=== PATIENT | female | born 1985 ===

== ENCOUNTER 2018-07-01 14:34 | Observation (INO) | payer SELFPAY ==
[~2018-07-01 14:34] MED LIST: Iohexol 300 100 ML IJ ONE; Sodium Chloride 0.9% 50 ML IV ONE
[2018-07-01] MEDS ORDERED: cefTRIAXone (Rocephin) 1 gm Inj ONE (15:21)
[2018-07-01 15:38] LABS: BASO # 0.1 K/uL (0.0-0.2); BASO % 0.5 % (0.0-2.0); EOS # 1.8 K/uL (0.0-0.7); HEMOGLOBIN 12.3 g/dL (12.0-16.0); LYMPH % 11.9 % (20.0-40.0); MEAN CELL VOLUME 91.6 fl (81.0-99.0); MEAN CORPUSCULAR HGB CONC 33.8 g/dL (33.0-37.0); MEAN PLATELET VOLUME 8.4 fl (7.2-11.7); MONO # 1.2 K/uL (0.0-0.8); MONO % 7.2 % (0.0-10.0); NEUT # 11.5 K/uL (1.8-7.0); NEUT % 69.4 % (50.0-75.0); RBC 3.96 Mil/uL (3.80-5.20); RED CELL DISTRIBUTION WIDTH 12.9 % (11.5-14.5); WHITE BLOOD COUNT 16.5 K/uL (4.8-10.8)
[2018-07-01 15:54] LABS: ALB/GLOB RATIO 1.3 (1.0-2.1); ALBUMIN 3.9 g/dL (3.5-5.0); ALT/SGPT 28 U/L (9-52); AST/SGOT 25 U/L (14-36); BLOOD UREA NITROGEN 13 mg/dl (7-17); CALCIUM 8.9 mg/dL (8.4-10.2); GFR NON-AFRICAN AMERICAN > 60
[2018-07-01 16:00] LABS: SQUAMOUS EPITHIAL 3 /hpf (0-5); URINE BILIRUBIN NEGATIVE (NEGATIVE); URINE BLOOD NEGATIVE (NEGATIVE); URINE CLARITY SLIGHTY-CLOUDY (Clear); URINE COLOR YELLOW (YELLOW); URINE GLUCOSE (UA) NEG (Normal); URINE LEUKOCYTE ESTERASE MOD Leu/uL (Negative); URINE PROTEIN NEGATIVE (NEGATIVE); URINE UROBILINOGEN 0.2-1.0 mg/dL (0.2-1.0)
--- NOTE | 2018-07-01 16:44 | CP.PCM.HP ---
History of Present Illness - History of Present Illness History of Present Illness: 33 yo female with no significant PMH came in because of low abdominal pain radiating to the back and right leg since 3 days ago. Denied dysuria, fever or chills. Had one episode of vomiting today but denied nausea. Present on Admission - Present on Admission Any Indicators Present on Admission: No History of DVT/PE: No History of Uncontrolled Diabetes: No Urinary Catheter: No Decubitus Ulcer Present: No Review of Systems - Review of Systems All systems: reviewed and no additional remarkable complaints except (aside from those mentioned above, 12 point system review were negative by me) Past Patient History - Tetanus Immunizations Tetanus Immunization: Unknown - Past Medical History & Family History Past Medical History?: No Past Family History: Reviewed and not pertinent - Past Social History Smoking Status: Never Smoked Chewing Tobacco Use: No Cigar Use: No Alcohol: None Drugs: Denies - CARDIAC Hx Cardiac Disorders: No - PULMONARY Hx Respiratory Disorders: No - NEUROLOGICAL Hx Neurological Disorder: No - HEENT Hx HEENT Problems: No - RENAL Hx Chronic Kidney Disease: No - ENDOCRINE/METABOLIC Hx Endocrine Disorders: No - HEMATOLOGICAL/ONCOLOGICAL Hx Blood Disorders: No - INTEGUMENTARY Hx Dermatological Problems: No - MUSCULOSKELETAL/RHEUMATOLOGICAL Hx Musculoskeletal Disorders: No - GASTROINTESTINAL Hx Gastrointestinal Disorders: No - GENITOURINARY/GYNECOLOGICAL Hx Genitourinary Disorders: No - PSYCHIATRIC Hx Psychophysiologic Disorder: No - SURGICAL HISTORY Hx Surgeries: No - ANESTHESIA Hx Anesthesia: No Physical Exam - Constitutional Appears: No Acute Distress - Head Exam Head Exam: ATRAUMATIC - Eye Exam Eye Exam: absent: Nystagmus - ENT Exam ENT Exam: Mucous Membranes Moist - Neck Exam Neck exam: Negative for: Meningismus - Respiratory Exam Respiratory Exam: absent: Rales, Rhonchi, Wheezes, Respiratory Distress - Cardiovascular Exam Cardiovascular Exam: REGULAR RHYTHM, +S1, +S2 - GI/Abdominal Exam GI & Abdominal Exam: Soft, Tenderness (tenderness over suprapubic area) - Rectal Exam Rectal Exam: Deferred - Extremities Exam Extremities exam: Negative for: calf tenderness, pedal edema - Back Exam Back exam: NORMAL INSPECTION - Neurological Exam Neurological exam: Alert, Oriented x3 - Psychiatric Exam Psychiatric exam: Normal Affect - Skin Skin Exam: Dry, Intact Results - Labs Result Diagrams: 07/01/18 12:40 07/01/18 12:40 Labs: Laboratory Results - last 24 hr 07/01/18 07/01/18 07/01/18 12:40 12:40 12:40 WBC 16.5 H RBC 3.96 Hgb 12.3 Hct 36.2 MCV 91.6 MCH 31.0 MCHC 33.8 RDW 12.9 Plt Count 320 MPV 8.4 Neut % (Auto) 69.4 Lymph % (Auto) 11.9 L [place] % (Auto) 7.2 Eos % (Auto) 11.0 H Baso % (Auto) 0.5 Neut # (Auto) 11.5 H Lymph # (Auto) 2.0 [place] # (Auto) 1.2 H Eos # (Auto) 1.8 H Baso # (Auto) 0.1 Sodium 136 Potassium 3.5 L Chloride 104 Carbon Dioxide 27 Anion Gap 9 L BUN 13 Creatinine 0.4 L Est GFR ( Amer) > 60 Est GFR (Non-Af Amer) > 60 Random Glucose 94 Calcium 8.9 Total Bilirubin 0.1 L AST 25 ALT 28 Alkaline Phosphatase 55 Total Protein 7.0 Albumin 3.9 Globulin 3.1 Albumin/Globulin Ratio 1.3 Urine Color Yellow Urine Clarity Slighty-cloudy Urine pH 5.0 Ur Specific [place] 1.024 Urine Protein Negative Urine Glucose (UA) Neg Urine Ketones Negative Urine Blood Negative Urine Nitrate Negative Urine Bilirubin Negative Urine Urobilinogen 0.2-1.0 Ur Leukocyte Esterase Mod Urine RBC (Auto) 3 Urine Microscopic WBC 10 H Ur Squamous Epith Cells 3 Assessment & Plan (1) Pyelonephritis Status: Acute Comment: urine and blood culture. IV hydration with NSS 125cc/hr. Rocephine 1mg IV daily. Morphine 2mg IV q 4hrs prn for pain (2) Hydronephrosis Status: Acute Comment: urology consult. review CT scan of abdomen and pelvis
[2018-07-01 16:45] VITALS: BMI 22.1
[2018-07-01] MEDS: Sodium Chloride 0.9% 1,000 ML IV SCH (17:06)
[2018-07-01] MEDS ORDERED: Pneumococcal 23-Valent Vaccine IM ONE (19:42)
[2018-07-01] MEDS ORDERED: Influenza Vaccine (5 YR UP)/PF 60 MCG/0.5 ML SYR IM ONE (19:43)
[2018-07-02] MEDS: Sodium Chloride 0.9% 1,000 ML IV SCH (06:20)
[2018-07-02 06:31] LABS: BASO # 0.1 K/uL (0.0-0.2); BASO % 0.7 % (0.0-2.0); EOS # 2.3 K/uL (0.0-0.7); EOS % 21.5 % (0.0-4.0); HEMOGLOBIN 11.9 g/dL (12.0-16.0); LYMPH # 2.6 K/uL (1.0-4.3); LYMPH % 24.4 % (20.0-40.0); MEAN CELL VOLUME 92.1 fl (81.0-99.0); MEAN CORPUSCULAR HEMOGLOBIN 31.4 pg (27.0-31.0); MEAN CORPUSCULAR HGB CONC 34.1 g/dL (33.0-37.0); MEAN PLATELET VOLUME 8.3 fl (7.2-11.7); MONO # 0.7 K/uL (0.0-0.8); MONO % 6.9 % (0.0-10.0); NEUT % 46.5 % (50.0-75.0); PLATELET COUNT 305 K/uL (130-400); RBC 3.79 Mil/uL (3.80-5.20); RED CELL DISTRIBUTION WIDTH 12.9 % (11.5-14.5); WHITE BLOOD COUNT 10.7 K/uL (4.8-10.8)
[2018-07-02 06:55] LABS: BLOOD UREA NITROGEN 9 mg/dl (7-17); CALCIUM 7.9 mg/dL (8.4-10.2); GFR NON-AFRICAN AMERICAN > 60
[2018-07-02 09:11] LABS: VENOUS BLOOD GAS BASE EXCESS -3.2 mmol/L (0.0-2.0); VENOUS BLOOD GAS PCO2 48 mmHg (40-60); VENOUS BLOOD GAS PO2 26 mm/Hg (30-55)
[2018-07-02] MEDS: Pantoprazole 40 mg EC Tab PO SCH (09:20)
--- NOTE | 2018-07-02 09:43 | CT ---
Date of service: 07/01/2018 PROCEDURE: CT Abdomen and Pelvis with contrast HISTORY: COMPARISON: None. TECHNIQUE: CT scan of the abdomen and pelvis was performed after administration of intravenous contrast. Oral contrast was not administered. Coronal and sagittal reformatted images were obtained. Contrast dose: 95 cc Omnipaque 300 Radiation dose: Total exam DLP = 251.70 mGy-cm. This CT exam was performed using one or more of the following dose reduction techniques: Automated exposure control, adjustment of the mA and/or kV according to patient size, and/or use of iterative reconstruction technique. FINDINGS: LOWER THORAX: There is minimal subsegmental atelectasis in the lung bases.. LIVER: Normal in size with homogeneous enhancement. No gross lesion or ductal dilatation. GALLBLADDER AND BILE DUCTS: No calcified gallstones. PANCREAS: Normal in size with homogeneous enhancement. No gross lesion or ductal dilatation. SPLEEN: Normal in size and appearance. ADRENALS: No discrete nodule. KIDNEYS AND URETERS: Normal in size with homogeneous enhancement. There is mild right hydronephrosis and mild dilatation of the proximal and mid right ureter without evidence for obstructing stone. No solid mass. VASCULATURE: No aortic aneurysm. BOWEL: The small bowel loops are normal in caliber. The colon is unremarkable. No bowel dilatation or obstruction. APPENDIX: Normal appendix. PERITONEUM: Unremarkable. No free fluid. No free air. LYMPH NODES: Unremarkable. No enlarged lymph nodes. BLADDER: The urinary bladder is over distended and grossly normal in appearance. REPRODUCTIVE: The uterus is normal in size and deviated to the right. BONES: No acute fracture. Within normal limits for the patient's age. OTHER FINDINGS: None. IMPRESSION: No acute abdominal or pelvic abnormality. Over distended urinary bladder, mild right hydronephrosis and mild dilatation of the proximal and mid right ureter likely related to an over distended urinary bladder. No evidence for obstructive uropathy.
--- NOTE | 2018-07-02 10:47 | CP.PCM.DIS ---
Addendum entered and electronically signed by Sandi Sinclair MD 07/03/18 12:43: Patient was seen and examined . All chart and clinical data reviewed . Case discussed with resident . Agree with assessment and discharge planning. Patient is hemodynamically stable, afebrile, pain free, voiding freely with no hematuria or dysuria will discharge patient home Continue Cipro for 5 more days Addendum entered and electronically signed by Lorenzo Phelan MD 07/03/18 12:03: Pt was discharged on 07/03/18 Original Note: Provider - Provider Date of Admission: 07/01/18 16:52 Attending physician: Myles Downs MD Time Spent in preparation of Discharge (in minutes): 20 Diagnosis - Discharge Diagnosis (1) Renal colic Status: Acute (2) Hydronephrosis Status: Acute (3) UTI (urinary tract infection) Status: Acute Hospital Course - Lab Results Lab Results: Most Recent Lab Values WBC 10.7 K/uL (4.8-10.8) 07/02/18 05:35 RBC 3.79 Mil/uL (3.80-5.20) L 07/02/18 05:35 Hgb 11.9 g/dL (12.0-16.0) L 07/02/18 05:35 Hct 34.9 % (34.0-47.0) 07/02/18 05:35 MCV 92.1 fl (81.0-99.0) 07/02/18 05:35 MCH 31.4 pg (27.0-31.0) H 07/02/18 05:35 MCHC 34.1 g/dL (33.0-37.0) 07/02/18 05:35 RDW 12.9 % (11.5-14.5) 07/02/18 05:35 Plt Count 305 K/uL (130-400) 07/02/18 05:35 MPV 8.3 fl (7.2-11.7) 07/02/18 05:35 Neut % (Auto) 46.5 % (50.0-75.0) L 07/02/18 05:35 Lymph % (Auto) 24.4 % (20.0-40.0) 07/02/18 05:35 [place] % (Auto) 6.9 % (0.0-10.0) 07/02/18 05:35 Eos % (Auto) 21.5 % (0.0-4.0) H 07/02/18 05:35 Baso % (Auto) 0.7 % (0.0-2.0) 07/02/18 05:35 Neut # (Auto) 5.0 K/uL (1.8-7.0) 07/02/18 05:35 Lymph # (Auto) 2.6 K/uL (1.0-4.3) 07/02/18 05:35 [place] # (Auto) 0.7 K/uL (0.0-0.8) 07/02/18 05:35 Eos # (Auto) 2.3 K/uL (0.0-0.7) H 07/02/18 05:35 Baso # (Auto) 0.1 K/uL (0.0-0.2) 07/02/18 05:35 ESR 12 mm/hr (0-20) 07/02/18 09:01 pO2 26 mm/Hg (30-55) L 07/01/18 14:50 ABG Carboxyhemoglobin 1.6 % (0.5-1.5) H 07/01/18 14:50 POC ABG HHb (Measured) 49.8 % (0.0-5.0) H 07/01/18 14:50 ABG Methemoglobin 3.7 % (0.0-3.0) H 07/01/18 14:50 VBG pH 7.30 (7.32-7.43) L 07/01/18 14:50 VBG pCO2 48 mmHg (40-60) 07/01/18 14:50 VBG HCO3 21.0 mmol/L 07/01/18 14:50 VBG O2 Sat (Calc) 47.4 % (40-65) 07/01/18 14:50 VBG Base Excess -3.2 mmol/L (0.0-2.0) L 07/01/18 14:50 VBG Hgb O2 Saturation 44.9 % (95.0-98.0) L 07/01/18 14:50 Hemoglobin 14.0 g/dL (11.7-17.4) 07/01/18 14:50 Sodium 138 mmol/l (132-148) 07/02/18 05:35 Potassium 3.8 MMOL/L (3.6-5.0) 07/02/18 05:35 Chloride 109 mmol/L (98-107) H 07/02/18 05:35 Carbon Dioxide 24 mmol/L (22-30) 07/02/18 05:35 Anion Gap 9 (10-20) L 07/02/18 05:35 BUN 9 mg/dl (7-17) 07/02/18 05:35 Creatinine 0.5 mg/dl (0.7-1.2) L 07/02/18 05:35 Est GFR ( Amer) > 60 07/02/18 05:35 Est GFR (Non-Af Amer) > 60 07/02/18 05:35 Random Glucose 85 mg/dL (65-105) 07/02/18 05:35 Calcium 7.9 mg/dL (8.4-10.2) L 07/02/18 05:35 Total Bilirubin 0.1 mg/dl (0.2-1.3) L 07/01/18 12:40 AST 25 U/L (14-36) 07/01/18 12:40 ALT 28 U/L (9-52) 07/01/18 12:40 Alkaline Phosphatase 55 U/L (38-126) 07/01/18 12:40 Total Protein 7.0 G/DL (6.3-8.2) 07/01/18 12:40 Albumin 3.9 g/dL (3.5-5.0) 07/01/18 12:40 Globulin 3.1 gm/dL (2.2-3.9) 07/01/18 12:40 Albumin/Globulin Ratio 1.3 (1.0-2.1) 07/01/18 12:40 Urine Color Yellow (YELLOW) 07/01/18 12:40 Urine Clarity Slighty-cloudy (Clear) 07/01/18 12:40 Urine pH 5.0 (5.0-8.0) 07/01/18 12:40 Ur Specific [place] 1.024 (1.003-1.030) 07/01/18 12:40 Urine Protein Negative mg/dL (NEGATIVE) 07/01/18 12:40 Urine Glucose (UA) Neg mg/dL (Normal) 07/01/18 12:40 Urine Ketones Negative mg/dL (NEGATIVE) 07/01/18 12:40 Urine Blood Negative (NEGATIVE) 07/01/18 12:40 Urine Nitrate Negative (NEGATIVE) 07/01/18 12:40 Urine Bilirubin Negative (NEGATIVE) 07/01/18 12:40 Urine Urobilinogen 0.2-1.0 mg/dL (0.2-1.0) 07/01/18 12:40 Ur Leukocyte Esterase Mod [place]/uL (Negative) 07/01/18 12:40 Urine RBC (Auto) 3 /hpf (0-3) 07/01/18 12:40 Urine Microscopic WBC 10 /hpf (0-5) H 07/01/18 12:40 Ur Squamous Epith Cells 3 /hpf (0-5) 07/01/18 12:40 - Hospital Course Hospital Course: 33 yo female with no PMH presented to ER due to low abd pain radiate to back and right leg since 3 days ago. PT was Admitted for evaluation Hydronephrosis. CT scan was ordered, mild hydronephrosis was noted. Pt was put on morphine for pain, hydrated, Ceftriaxone given. CBC and CMP was withdrawn, WBC was 16.4 with eosinophelia. Today pt state pain have improved, vitals are stable, WBC resolved to 10.7. U/S was ordered to r/o appendicitis which was negative. Pt able to void, eat and feel comfortable to go home. Pt will be discharged with PO with Cipro 500mg BID for 7days Pt need to follow up with PCP in 1 week. If pain rebound or exacerbate, develop fever chills, N vomiting or any symptoms of concern pt should go to the closest ER. Case discussed with Dr Sincalir. Discharge Exam - Head Exam Head Exam: ATRAUMATIC, NORMAL INSPECTION, NORMOCEPHALIC - Eye Exam Eye Exam: EOMI, Normal appearance, PERRL Pupil Exam: NORMAL ACCOMODATION, PERRL - ENT Exam ENT Exam: Normal Exam, Normal External Ear Exam. absent: Mucous Membranes Dry - Neck Exam Neck exam: Full Rom, Normal Inspection - Respiratory Exam Respiratory Exam: Clear to PA & Lateral, NORMAL BREATHING PATTERN, UNREMARKABLE. absent: Chest Wall Tenderness, Decreased Breath Sounds - Cardiovascular Exam Cardiovascular Exam: REGULAR RHYTHM, +S1, +S2 - GI/Abdominal Exam GI & Abdominal Exam: Normal Bowel Sounds, Unremarkable. absent: Distended, Firm, Guarding, Hernia, Hyperactive Bowel Sounds, Pulsatile Mass, Rigid Additional comments: Tenderness noted on mid lower pelvic area Psoas Sign Negative - Rectal Exam Rectal Exam: NORMAL INSPECTION - Extremities Exam Extremities exam: full ROM - Back Exam Back exam: NORMAL INSPECTION. absent: CVA tenderness (L), CVA tenderness (R) - Neurological Exam Neurological exam: Alert, CN II-XII Intact, Oriented x3 - Psychiatric Exam Psychiatric exam: Normal Affect, Normal Mood - Skin Skin Exam: Dry, Intact, Normal Color, Warm Additional comments: Skin hyperpigmentation noted on LMQ of abdomen, and RIGHT forearm Discharge Plan - Discharge Medications Prescriptions: Ciprofloxacin [Cipro] 500 mg PO Q12H #14 tab - Follow Up Plan Condition: STABLE Disposition: HOME/ ROUTINE Instructions: Hydronephrosis, Adult (DC) Additional Instructions: follow up with primary MD 1 week hacer bobo con [place] primario dentro de 1 semana Hacer bobo on [facility] lo mas pronto possible Referrals: [facility] [place] [Outside]
[2018-07-02 11:45] LABS: EOSINOPHIL 26 % (0-7); LYMPHOCYTE 26 % (20-50); MONOCYTE 5 % (0-10); NEUTROPHIL 43 % (42-75); TOTAL CELLS COUNTED 100
[2018-07-02 11:46] LABS: HYPOCHROMIC SLIGHT; PLATELET ESTIMATE NORMAL (NORMAL)
--- NOTE | 2018-07-02 16:09 | CP.PCM.PN ---
Addendum entered and electronically signed by Sandi Sinclair MD 07/02/18 18:40: Patient seen and examined bedside . All chart and clinical data reviewed . Case discussed with resident . Agree with assessment and plan With RLQ tenderness and rebound Hemodtynamically stable, afebrile, denies dysuria or hematuria WBC 10 K , UA showed only 10 WBC and moderate LE US abdomen showed mild right hydronephrosis and non obstructing calculi Will continue current management , IVF , pain management and IV antibiotics Possibly diagnosis is renal colic and less likely UTI Original Note: Subjective - Date & Time of Evaluation Date of Evaluation: 07/02/18 Time of Evaluation: 07:00 - Subjective Subjective: Pt is seen and examined at bed site, Pt have no acute event overnight, Pt was able to void with no difficulty. Pt is comfortable, have mild abd pain exacerbated by movement mostly on RLQ. Pt denies any fever, chills, chest pain, sob, diarrhea/constipation, dysuria or polyuria. Objective - Vital Signs/Intake and Output Vital Signs (last 24 hours): Temp Pulse Resp BP Pulse Ox 99.0 F 57 L 20 102/67 99 07/02/18 08:10 07/02/18 08:10 07/02/18 08:10 07/02/18 08:10 07/02/18 08:10 - Medications Medications: Current Medications Sodium Chloride (Sodium Chloride 0.9%) 1,000 mls @ 100 mls/hr IV .Q10H CRISTY Last Admin: 07/02/18 06:20 Dose: Not Given Ceftriaxone Sodium 1 gm/ (Sodium Chloride) 100 mls @ 100 mls/hr IVPB DAILY CRISTY; Protocol Last Admin: 07/02/18 10:45 Dose: 100 mls/hr Morphine Sulfate (Morphine) 2 mg IVP Q4 PRN PRN Reason: Pain, moderate (4-7) Last Admin: 07/02/18 06:54 Dose: 2 mg Pantoprazole Sodium (Protonix Ec Tab) 40 mg PO DAILY CRISTY Last Admin: 07/02/18 09:20 Dose: 40 mg - Labs Labs: 07/02/18 05:35 07/02/18 05:35 - Constitutional Appears: Well, Non-toxic, No Acute Distress - Head Exam Head Exam: ATRAUMATIC, NORMAL INSPECTION, NORMOCEPHALIC - Eye Exam Eye Exam: EOMI, Normal appearance, PERRL Pupil Exam: NORMAL ACCOMODATION, PERRL - ENT Exam ENT Exam: Mucous Membranes Moist, Normal Exam - Neck Exam Neck Exam: Full ROM, Normal Inspection - Respiratory Exam Respiratory Exam: Clear to Ausculation Bilateral, NORMAL BREATHING PATTERN. absent: Rales, Rhonchi, Wheezes, Respiratory Distress - Cardiovascular Exam Cardiovascular Exam: REGULAR RHYTHM, +S1, +S2 - GI/Abdominal Exam GI & Abdominal Exam: Soft, Tenderness, Normal Bowel Sounds, Rebound Additional comments: Psoas sign +, rebound tenderness on RLQ - Extremities Exam Extremities Exam: Full ROM, Normal Capillary Refill, Normal Inspection Additional comments: abd tenderness upon elevating right lower extremity - Back Exam Back Exam: NORMAL INSPECTION. absent: CVA tenderness (L), CVA tenderness (R) - Neurological Exam Neurological Exam: Alert, Awake, Oriented x3 - Psychiatric Exam Psychiatric exam: Normal Affect, Normal Mood - Skin Skin Exam: Dry, Intact, Normal Color, Warm Assessment and Plan (1) Hydronephrosis Status: Acute (2) Psoas test positive Status: Acute - Assessment and Plan (Free Text) Assessment: Pt is a 33 yo f with no pmh presented with abd pain, nausea and vomiting. Admitted to evaluate Hydronephrosis RLQ tenderness evaluate for Appendicitis Psoas sign +, rebound Tenderness noted on RLQ Will order U/S abd to evaluate for actue appendicitis continue Pain medication Monitor for any acute changes Continue as Observation Hydronephrosis Improved Pt feel better, able to void freely PT WBC 16.5->10.[address] Scan Mild Hydronephrosis noted on R with over distended bladder DVT prophylaxis Lovenox 40sc SCD
--- NOTE | 2018-07-02 18:10 | US ---
HISTORY: RLQ abd pain COMPARISON: CT abdomen pelvis with IV contrast performed 07/01/18 TECHNIQUE: Sonographic evaluation of the abdomen. FINDINGS: LIVER: Measures 13.5 cm in sagittal dimension and appears within normal limits of size, shape, and echotexture. No focal hepatic mass identified. The main portal vein appears patent with normal directional flow. No intrahepatic bile duct dilatation. GALLBLADDER: No gallstones. No gallbladder wall thickening. Negative sonographic Latham's sign as assessed by the vehicle refinisher. COMMON BILE DUCT: Measures 2 mm. PANCREAS: Not well visualized. RIGHT KIDNEY: Measures 10.2 x 4.1 x 4.2 cm. Mild hydronephrosis. No obstructing calculus identified. LEFT KIDNEY: Measures 9.7 x 4.1 x 5.8 cm. No obstructing calculus or hydronephrosis identified. SPLEEN: Measures approximately 7.3 cm. AORTA: Limited views appear unremarkable. IVC: Limited views appear unremarkable. OTHER FINDINGS: None. IMPRESSION: Mild right-sided hydronephrosis.
[2018-07-03] MEDS: Sodium Chloride 0.9% 1,000 ML IV SCH ×2 (02:15→09:00)
[2018-07-03 06:40] LABS: HEMOGLOBIN 12.6 g/dL (12.0-16.0); MEAN CELL VOLUME 92.4 fl (81.0-99.0); MEAN CORPUSCULAR HEMOGLOBIN 31.7 pg (27.0-31.0); MEAN CORPUSCULAR HGB CONC 34.3 g/dL (33.0-37.0); RBC 3.98 Mil/uL (3.80-5.20); WHITE BLOOD COUNT 9.5 K/uL (4.8-10.8)
[2018-07-03 06:46] LABS: BLOOD UREA NITROGEN 10 mg/dl (7-17); CALCIUM 8.5 mg/dL (8.4-10.2); GFR NON-AFRICAN AMERICAN > 60
[2018-07-03 08:05] VITALS: BP 101/56; PULSE 56; RESP 19; TEMP 97.8; O2SAT 96
[2018-07-03] MEDS: Pantoprazole 40 mg EC Tab PO SCH (08:51)
== END 2018-07-03 12:46 | disposition home or self-care (01) ==
LOC: H.ER 14:34 → INTOOBSV 16:52 → H.ERHOLD 16:52 → H.MEDSURG1 18:31
PROVIDERS: ADMIT Hospitalist; ATTEND Hospitalist
DX: N23 Unspecified renal colic (principal); N39.0 Urinary tract infection, site not specified; N13.30 Unspecified hydronephrosis; Z23 Encounter for immunization
CPT/HCPCS: 36415; 74177; 76700; 80048; 80053; 81003; 82803; 85025; 85027; 85651; 86021; 86038; 87040; 87086; 90471; 90732; 99281; G0378; J0696; J2270; J7030; Q2035; Q9967